=== PATIENT | female | born 1960 | race Caucasian/White ===

== ENCOUNTER 2021-12-14 07:43 | Inpatient (IN) | payer BC, SELFPAY ==
[2021-12-14] VITALS (18 sets, daily range): BP systolic 153–223; BP diastolic 66–144; PULSE 67–100; RESP 14–18; TEMP 36.2–36.8; O2SAT 93–99; BMI 29.2; BMI 29.0
--- NOTE | 2021-12-14 07:48 | NURSING ---
745 STROKE ALERT CALLED
--- NOTE | 2021-12-14 07:54 | RAD_ITS ---
STUDY: X-RAY CHEST REASON FOR EXAM: Female, 60 years old. Neuro deficit, acute, stroke suspected TECHNIQUE: Single AP portable view of the chest. COMPARISON: None. FINDINGS: EKG electrodes are seen. The lungs are clear and expanded. There is no demonstrated pleural abnormality. Normal size heart. Normal mediastinum and roshan. Normal visualized pulmonary arteries. Normal visualized aortic arch and descending thoracic aorta. There are degenerative changes of the visualized thoracic spine. Normal visualized ribs, clavicles, and shoulders. There is no demonstrated abnormality of the visualized soft tissue structures of the upper abdomen. RAD/Chest 1 View IMPRESSION: No acute abnormality is seen. Electronically Signed: Gilbert Luis MD at 8:41 EDT ,
--- NOTE | 2021-12-14 07:54 | EKG12_ITS ---
Test Reason : STOKE Blood Pressure : / mmHG Vent. Rate : 079 BPM Atrial Rate : 079 BPM P-R Int : 132 ms QRS Dur : 086 ms QT Int : 380 ms P-R-T Axes : 053 054 054 degrees QTc Int : 435 ms Normal sinus rhythm Normal ECG Confirmed by SHAHNAZ EDMONDS, JESUS ([id number]), video effects editor ANDREI JANE ([id number]) on 12/18/2021 8:52:22 AM Referred By: PL Confirmed By:JESUS CHRISTIE MD
--- NOTE | 2021-12-14 07:54 | CT_ITS ---
STUDY: CTA HEAD AND NECK WITH CONTRAST REASON FOR EXAM: Female, 60 years old. Neuro deficit, acute, stroke suspected RADIATION DOSAGE (If Supplied By Facility): CTDIvol = ( 27.33 ) mGy, DLP = ( 952.61 ) mGycm TECHNIQUE: CT angiography was performed with a multi-detector CT scanner. Data acquisition was obtained from the skull base through the vertex following intravenous administration of IV 100mL Isovue-370. MIP images were reconstructed from the axial data set. Post-processing of the angiographic images was performed, with multiplanar reformation and 3D reconstruction. Individualized dose optimization techniques were used for this CT. COMPARISON: No relevant priors. FINDINGS: Normal bilateral petrous carotid arteries. Normal right cavernous carotid artery with a normal supraclinoid bifurcation. Normal left cavernous carotid artery with a normal supraclinoid bifurcation. Normal right A1 segments of the anterior cerebral artery. Normal left A1 segments of the anterior cerebral artery. Normal intact anterior communicating artery (ACOM). Normal bilateral A2 segments of the anterior cerebral arteries. Normal right M1 and M2 segments of the middle cerebral arteries, with a normal M1 bifurcation. Normal left M1 and M2 segments of the middle cerebral arteries, with a normal M1 bifurcation. Normal right posterior communicating artery (PCOM). Normal left posterior communicating artery (PCOM). Normal bilateral vertebral arteries. Normal basilar artery with a normal basilar bifurcation. The visualized bilateral superior cerebellar (SCA) arteries are normal. Normal bilateral P1, P2 and visualized P3 segments of the posterior cerebral arteries. There is no demonstrated aneurysm of the [place] of [place]. There is no demonstrated abnormality of the visualized brain. AORTIC ARCH: Normal visualized aortic arch. Normal origins of the brachiocephalic, left common carotid, and left subclavian arteries. RIGHT CAROTID ARTERIES: Normal right common carotid artery (CCA). Normal right common carotid bulb. Normal origin of the right internal carotid (ICA) artery without a hemodynamically significant stenosis. Normal visualized cervical portion of the right internal carotid artery. Normal origin of the right external carotid artery (ECA). LEFT CAROTID ARTERIES: Normal left common carotid artery (CCA). Normal left common carotid bulb. Normal origin of the left internal carotid (ICA) artery without a hemodynamically significant stenosis. Normal visualized cervical portion of the left internal carotid artery. Normal origin of the left external carotid artery (ECA). VERTEBRAL ARTERIES: Normal bilateral vertebral arteries. CT/STROKE CTA Head AND Neck W/Con IMPRESSION: Normal CTA Head and neck with contrast. N.B. : The above Results were Read Back by Gilbert Luis MD to FABIENNE SOTOMAYOR and understanding confirmed on 12/14/2021 08:15:54 (ET). Electronically Signed: Gilbert Luis MD at 8:16 EDT ,
--- NOTE | 2021-12-14 07:54 | CT_ITS ---
STUDY: CT HEAD STROKE PROTOCOL W/O CONTRAST INJECTION REASON FOR EXAM: Female, 60 years old. Neuro deficit, acute, stroke suspected RADIATION DOSAGE (If Supplied By Facility): CTDIvol = ( 47.6 ) mGy, DLP = ( 37.39 ) mGycm TECHNIQUE: Transaxial CT imaging of the brain was performed without administration of intravenous contrast material. Individualized dose optimization techniques were used for this CT. COMPARISON: No relevant priors. FINDINGS: Normal soft tissue structures. Normal calvarium. Normal size ventricles and extra-axial spaces for the patient''s age. Normal white matter tracts of the cerebral hemispheres. Normal basal ganglia and thalami. Normal brainstem. Normal cerebellum. There is no intracranial hemorrhage. There are no findings of an acute ischemic infarction. Normal visualized paranasal sinuses. ASPECT score: 10 CT/STROKE Brain/Head without Cont IMPRESSION: Normal unenhanced CT scan of the brain. N.B. : The above Results were Read Back by Gilbert Luis MD to FABIENNE SOTOMAYOR and understanding confirmed on 12/14/2021 08:07:21 (ET). Electronically Signed: Gilbert Luis MD at 8:08 EDT ,
--- NOTE | 2021-12-14 07:54 | ED.VIS.STROK ---
HPI History of Present Illness Chief Complaint: Neuro S/Sx Informant: patient and family Narrative Narrative: Story from patient and daughter. Patient presents with wake-up stroke symptoms. She just did not feel right this morning but cannot specify what that is. She is on prednisone starting since Friday for lower back spasms. They are getting better. She started 40 mg a day and has been tapering down. She texted her daughter to pick her up at work which is not normal. She had driven into work this morning. The daughter noticed left facial droop. She also got several texts from her while she was driving in to [place] pickup her mother. Some of the text did not make a lot of sense but others did. But her speech has been clear the whole time. No thought process abnormality. There is no reported trauma. No headache. Patient has no chronic medical conditions, endometrial cancer 10 years ago with surgery and radiation but no chemo and no recurrence. No routine medications but she is on prednisone currently Allergy to sulfa Surgeries prior hysterectomy [facility] Medical History Former smoker History of endometrial cancer Migraines Home Medications lidocaine 4 % topical patch (Lidocaine Pain Relief) 1 patch topical DAILY PRN Pain 12/14/21 [History Last Taken Unknown] prednisone 10 mg tablet 10 mg PO DAILY 12/14/21 [History Last Taken Unknown] Allergy/AdvReac Type Severity Reaction Status Date / Time Sulfa (Sulfonamide Allergy Anaphylaxis Verified 12/14/21 07:47 Antibiotics) Surgical History Hx of hysterectomy Social History (Updated 12/14/21 @ 11:[address] Ryley Lima DO) Smoking Status: Former smoker alcohol intake: never substance use type: does not use ROS ROS ED Constitutional Constitutional ED: Denies chills or fever(s) Eyes Eyes: Denies diplopia ENT ENT ED: Denies sore throat Cardiovascular Cardiovascular: Denies chest pain or palpitations Respiratory/Chest Respiratory/Chest: Denies cough or dyspnea Gastrointestinal Gastrointestinal: Denies nausea or vomiting Genitourinary Genitourinary ED: Denies dysuria Musculoskeletal Musculoskeletal: Denies neck pain Integumentary Denies rash Neurologic Neurologic: Reports paresthesias and weakness; Denies headache(s) Endocrine Endocrinology: Denies polydipsia or polyuria Hematologic/Lymphatic Hematologic/Lymphatic: Reports other Details: No anticoagulation. ; Denies easy bleeding or easy bruising Allergic/Immunologic Allergic/Immunologic ED: Denies urticaria EXAM Physical Exam Const Vital Signs: 12/14/21 07:45 12/14/21 08:06 12/14/21 07:54 Temperature 97.6 F L Temperature Source Temporal Pulse Rate 89 77 91 Respiratory Rate 16 16 16 Blood Pressure 219/144 H 203/108 H 203/109 H Blood Pressure Mean 169 139 140 Pulse Ox 98 98 99 Oxygen Delivery Method Room Air Room Air Room Air 12/14/21 07:54 12/14/21 08:24 12/14/21 08:30 Temperature Temperature Source Pulse Rate 78 78 Respiratory Rate 15 15 Blood Pressure 211/103 H 211/103 H Blood Pressure Mean 139 139 Pulse Ox 97 97 Oxygen Delivery Method Room Air Room Air Room Air 12/14/21 09:00 Temperature Temperature Source Pulse Rate 67 Respiratory Rate 14 Blood Pressure 223/109 H Blood Pressure Mean 147 Pulse Ox 98 Oxygen Delivery Method Room Air Positive well nourished and well developed General Appearance ED: well developed and NAD HEENT Reports moist mucous membranes Eyes PERRL and EOMs intact bilaterally Neck no JVD Chest Wall inspection of chest normal Resp normal respiratory effort Cardio no murmurs GI normal to inspection, nondistended, normoactive bowel sounds and soft to palpation Extremity normal to inspection Neuro oriented x3 Neuro Narrative: Patient has left-sided facial weakness that does not involve her forehead. Sensorium / Orientation: alert Psych mental status grossly normal Skin no wounds STROKE Vital Signs/Narrative: Vital Signs Temp Pulse Resp BP Pulse Ox O2 Del Method 12/14/21 07:45 97.6 F L 89 16 219/144 H 98 Room Air NIHSS Initial: 1a Level of Consciousness: 0 1b LOC Questions (Score 2 if aphasic/stupor): 0 1c LOC Commands (Only score 1st attempt): 0 2 Best Gaze (If aphasic, use reflexive mvmts.): 0 3 Visual: 0 4 Facial Palsy: 1 5 Motor Arm Right (UN = amputation/fusion): 0 5 Motor Arm Left: 0 6 Motor Leg Right: 0 6 Motor Leg Left: 0 7 Limb ataxia (Only + if out of proportion): 0 8 Sensory (Aphasia/stupor=0 or 1, coma=2): 1 9 Best Language: 0 11 Extinction and Inattention (only scored if +): 0 Total Score: 2 MDM MDM MDM Narrative Medical decision making narrative: Patient CT is not showing acute changes at this time. CTA shows no acute process. Hemoglobin and white count are minimally high which is nonspecific. Coags are normal. Electrolytes show mild increased BUN to creatinine ratio but no other acute process. Chest x-ray showed no acute process. Patient had teleneurology evaluation. They recommended no tPA but positive admission for further work-up. I discussed case with hospitalist. I rechecked the patient before the end of her visit. The slight sensory change that she had in her left leg was now gone but the left facial droop that was subtle is unchanged. Lab Data Attestation: I reviewed the patient's lab results. Labs: Laboratory Results - last 24 hr 12/14/21 12/14/21 12/14/21 07:47 07:47 07:47 WBC 12.7 H RBC 5.19 Hgb 15.7 H Hct 46.8 MCV 90.2 MCH 30.3 MCHC 33.5 RDW Std Deviation 39.7 RDW Coeff of Kip 12.1 Plt Count 341 MPV 10.2 Immature Gran % (Auto) 0.400 Neut % (Auto) 66.8 Lymph % (Auto) 23.4 [place] % (Auto) 8.7 Eos % (Auto) 0.5 Baso % (Auto) 0.2 Absolute Neuts (auto) 8.5 H Absolute Lymphs (auto) 2.97 Nucleated RBC % 0 PT 12.0 INR 0.9 APTT 24.1 Sodium 141 Potassium 3.5 Chloride 104 Carbon Dioxide 34.0 H Anion Gap 3 L BUN 21 H Creatinine 0.81 Estim Creat Clear Calc 61.86 Est GFR (MDRD) Af Amer 92 Est GFR (MDRD) Non-Af 76 BUN/Creatinine Ratio 25.8 H Glucose 88 Calcium 9.6 Troponin I High Sens 4 POC Glucose 12/14/21 07:49 WBC RBC Hgb Hct MCV MCH MCHC RDW Std Deviation RDW Coeff of Kip Plt Count MPV Immature Gran % (Auto) Neut % (Auto) Lymph % (Auto) [place] % (Auto) Eos % (Auto) Baso % (Auto) Absolute Neuts (auto) Absolute Lymphs (auto) Nucleated RBC % PT INR APTT Sodium Potassium Chloride Carbon Dioxide Anion Gap BUN Creatinine Estim Creat Clear Calc Est GFR (MDRD) Af Amer Est GFR (MDRD) Non-Af BUN/Creatinine Ratio Glucose Calcium Troponin I High Sens POC Glucose 82 Radiography Diagnostic Testing: Clinical Impression(s) from Imaging Studies Brain CT 12/14/21 07:54 IMPRESSION: Normal unenhanced CT scan of the brain. N.B. : The above Results were Read Back by Gilbert Luis MD to FABIENNE SOTOMAYOR and understanding confirmed on 12/14/2021 08:07:21 (ET). Electronically Signed: Gilbert Luis MD at 8:08 EDT , ADDENDUM: 12/14/21 0815 IMPRESSION: Normal unenhanced CT scan of the brain. N.B. : The above Results were Read Back by Gilbert Luis MD to FABIENNE SOTOMAYOR and understanding confirmed on 12/14/2021 08:07:21 (ET). Electronically Signed: Gilbert Luis MD at 8:08 EDT , Chest X-Ray 12/14/21 07:54 IMPRESSION: No acute abnormality is seen. Electronically Signed: Gilbert Luis MD at 8:41 EDT , Head/Neck CTA 12/14/21 07:54 IMPRESSION: Normal CTA Head and neck with contrast. N.B. : The above Results were Read Back by Gilbert Luis MD to FABIENNE SOTOMAYOR and understanding confirmed on 12/14/2021 08:15:54 (ET). Electronically Signed: Gilbert Luis MD at 8:16 EDT , ADDENDUM: 12/14/21822 IMPRESSION: Normal CTA Head and neck with contrast. N.B. : The above Results were Read Back by Gilebrt Luis MD to FABIENNE SOTOMAYOR and understanding confirmed on 12/14/2021 08:15:54 (ET). Electronically Signed: Gilbert Luis MD at 8:16 EDT , Discharge Plan Dx/Rx/DC Orders Clinical Impression: CVA (cerebral vascular accident) Disposition Disposition: Acute Care Hospital [facility]
[2021-12-14 08:01] LABS: Absolute Lymphocyte Count 2.97 X10^3/uL (0.83-4.51); Absolute Neutrophil Count 8.5 X10^3/uL (2.0-7.7); Basophil# 0.03 X10^3/uL; Basophil% 0.2 % (0-1); Eosinophil# 0.06 X10^3/uL; Eosinophils% 0.5 % (0-5); Hematocrit 46.8 % (37-47); Hemoglobin 15.7 g/dL (12.0-15.0); Lymphocyte # 2.97 X10^3/ul (0.83-4.51); Lymphocyte % 23.4 % (19-41); Mean Corp Hgb Conc 33.5 g/dL (32-36); Mean Corpuscular Hgb 30.3 pg (27.0-32.0); Mean Corpuscular Volume 90.2 fL (81-99); Mean Platelet Vol. 10.2 fl (6.2-12.0); Monocyte% 8.7 % (0-10); NRBC Flagged by Analyzer 0 % (0-5); Neutrophil # 8.47 X10^3/uL (2.7-7.7); Neutrophil % 66.8 % (47-70); Platelet Count 341 K/mm3 (150-450); RBC Distribution Width CV 12.1 % (11.6-14.6); RBC Distribution Width SD 39.7 fl (35.1-43.9); Red Blood Count 5.19 M/mm3 (4.2-5.4); White Blood Count 12.7 K/mm3 (4.4-11.0)
[2021-12-14 08:10] LABS: Bedside Glucose 82 mg/dL (74-106)
[2021-12-14 08:11] LABS: International Normalized Ratio 0.9
[2021-12-14 08:12] LABS: Partial Thromboplast Time 24.1 Seconds (24.1-36.2)
[2021-12-14 08:19] LABS: Anion Gap 3 (5-15); BUN 21 mg/dL (7-18); BUN/Creat Ratio 25.8 RATIO (10-20); Calcium,Total 9.6 mg/dL (8.5-10.1); Chloride 104 mmol/L (98-107); Creatinine, Serum 0.81 mg/dL (0.55-1.02); EST Glomerular Filtration Rate 76 mL/min (>60); Est Glom Filt Rate - Afr Amer 92 mL/min (>60); Estimated Creatinine Clearance 61.86 ml/min; Glucose 88 mg/dL (74-106); Potassium 3.5 mmol/L (3.5-5.1); Sodium Level 141 mmol/L (136-145); Troponin-I HS 4 pg/mL (3.0-54.0)
--- NOTE | 2021-12-14 08:22 | ED.RN ---
[id number] THIS RN ON THE PHONE WITH [facility] CALLING STROKE TEAM INFORMATION
[2021-12-14] MEDS: Labetalol (Prefilled) 20 MG/4 ML IV (09:12)
--- NOTE | 2021-12-14 09:29 | NURSING ---
DR GERARDO SOTOMAYOR
--- NOTE | 2021-12-14 10:28 | MRI_ITS ---
We are attempting to reach an attending provider to discuss findings. An addendum with communication details will be sent when the communication is complete. EXAM: MR HEAD WITHOUT INTRAVENOUS CONTRAST CLINICAL INDICATION: CVA, L WEAKNESS, L FACIAL DROOP TECHNIQUE: Multiplanar and multisequence MR images of the brain were obtained without intravenous contrast. This report was created using [employer] report generation technology. COMPARISON: CT brain 12/14/2021 FINDINGS: BRAIN AND EXTRA-AXIAL SPACES: 3.2 cm area of restricted diffusion involves the right putamen consistent with acute infarction. No evidence of hemorrhage. Increased T2 signal intensity within the cerebral white matter suggestive of chronic microvascular change. No intracranial mass or mass effect. Posterior fossa structures are unremarkable. Ventricles are appropriate for age. No hydrocephalus. Basal cisterns are patent. SELLA: Unremarkable. Normal sella turcica, pituitary gland, infundibular stalk, optic chiasm and hypothalamus. AUDITORY SYSTEM: Unremarkable. The internal auditory canals are patent. BONES/JOINTS: Unremarkable. No discrete lytic or blastic abnormalities. SINUSES: Unremarkable as visualized. Clear. MASTOID AIR CELLS: Unremarkable as visualized. Clear. ORBITS: Unremarkable as visualized. Both globes, extraocular muscles, optic nerves and retrobulbar fat appear unremarkable. VASCULATURE: Unremarkable as visualized. Normal flow voids in the major intracranial circulation. MRI/Brain without Contrast IMPRESSION: 1. Acute infarction of the right putamen. 2. Chronic microvascular changes. Electronically Signed: Navjot Cali MD at 13:21 EDT ,
--- NOTE | 2021-12-14 10:28 | ECHOD_ITS ---
Reason For Study: TIA/CVA Procedure This was a 2D Doppler, Color Flow transthoracic echocardiogram. Exam performed portable in patient room. Left Ventricle Normal left ventricle. The estimated ejection fraction is 55-60 %. Right Ventricle Normal right ventricle. Normal systolic function. Atria The left atrium is mildly enlarged. Normal right atrium. Mitral Valve There is mild mitral annular calcification. Mild (1+) mitral valve insufficiency. Tricuspid Valve Normal tricuspid valve. Mild tricuspid valve insufficiency. Aortic Valve Normal aortic valve. Pulmonic Valve The pulmonic valve is not well visualized. Great Vessels Normal aortic root. Pericardium/Pleural No pericardial effusion. MMode/2D Measurements & Calculations LVIDd: 3.2 cm IVSd: 1.4 cm Ao root diam: 2.9 cm LVIDs: 2.4 cm LVPWd: 1.2 cm RVDd: 2.5 cm FS: 24.2 % LAV(MOD-bp): 49.4 ml LVAd ap4: 22.6 cm2 SV(MOD-sp4): 35.3 ml LAV(MOD-bp) Indexed: 27.8 ml/m2 LVLd ap4: 6.7 cm LAV(MOD-sp2): 38.4 ml EDV(MOD-sp4): 61.3 ml LAV(MOD-sp4): 57.3 ml EDV(sp4-el): 64.6 ml LVAs ap4: 13.5 cm2 LVLs ap4: 5.8 cm ESV(MOD-sp4): 25.9 ml ESV(sp4-el): 26.6 ml EF(MOD-sp4): 57.7 % EF(sp4-el): 58.9 % SV(sp4-el): 38.0 ml LA A4 area: 19.4 cm2 LA dimension(2D): 3.6 cm RA A4 area: 10.1 cm2 Doppler Measurements & Calculations MV E max shane: 109.5 cm/sec Ao V2 max: 116.3 cm/sec LV V1 max: 106.7 cm/sec MV A max shane: 103.0 cm/sec Ao max P.4 mmHg LV V1 max P.6 mmHg MV E/A: 1.1 MR max shane: 507.3 cm/sec PA V2 max: 76.6 cm/sec TR max shane: 285.9 cm/sec MR max P.9 mmHg TR max P.7 mmHg ECHO/Echo Complete Interpretation Summary The estimated ejection fraction is 55-60 %. Normal LV systolic function No prior study to compare Ordering Physician: Ryley Lima Performed By: Kinga Bauman RCS
[2021-12-14 10:32] LABS: Troponin-I HS 4 pg/mL (3.0-54.0)
[2021-12-14] MEDS: predniSONE 10 MG Tablet PO (11:16)
[2021-12-14] MEDS: Enoxaparin 40 MG/0.4 ML Syringe SC (11:16)
--- NOTE | 2021-12-14 11:40 | HP.PCM.HOS_ITS ---
HPI - General General Date of Admission: 12/14/21 Date of Service: 12/14/21 Chief Complaint: left facial droop HPI Narrative CLAIR HOLLOWAY, is a 60 F who presents with left facial droop. Patient woke up not feeling well and was having difficulty with her left lower extremity where he tripped over the bottom of the shower. Patient also noted left facial droop. Patient type to text to her daughter that was initially coherent and understand able about picking her up and then she had subsequent text that was just what appeared to be much random letters. Patient denies any expressive nor receptive aphasia. Patient presented here and was noted to have left facial droop. Patient had a head CT CTA of head neck that was unremarkable. Seen by teleneurology who recommended inpatient work-up for stroke with MRI and echocardiogram. [facility] Medical History Former smoker History of endometrial cancer Migraines Home Medications lidocaine 4 % topical patch (Lidocaine Pain Relief) 1 patch topical DAILY PRN Pain 12/14/21 [History Last Taken Unknown] prednisone 10 mg tablet 10 mg PO DAILY 12/14/21 [History Last Taken Unknown] Allergy/AdvReac Type Severity Reaction Status Date / Time Sulfa (Sulfonamide Allergy Anaphylaxis Verified 12/14/21 07:47 Antibiotics) Surgical History Hx of hysterectomy Social History (Updated 12/14/21 @ 11:[address] Ryley Lima DO) Smoking Status: Former smoker alcohol intake: never substance use type: does not use ROS ROS Narrative All review of systems were negative except as mentioned above in the history of present illness and the other review of systems. Vital Signs Vital Signs Vital Signs: 12/14/21 07:45 12/14/21 08:06 12/14/21 07:54 Temperature 36.4 C L Temperature Source Temporal Pulse Rate 89 77 91 Respiratory Rate 16 16 16 Blood Pressure 219/144 H 203/108 H 203/109 H Blood Pressure Mean 169 139 140 Blood Pressure Source Blood Pressure Position Blood Pressure Location Pulse Ox 98 98 99 Oxygen Delivery Method Room Air Room Air Room Air 12/14/21 07:54 12/14/21 08:24 12/14/21 08:30 Temperature Temperature Source Pulse Rate 78 78 Respiratory Rate 15 15 Blood Pressure 211/103 H 211/103 H Blood Pressure Mean 139 139 Blood Pressure Source Blood Pressure Position Blood Pressure Location Pulse Ox 97 97 Oxygen Delivery Method Room Air Room Air Room Air 12/14/21 09:00 12/14/21 09:30 12/14/21 09:39 Temperature 36.6 C Temperature Source Temporal Pulse Rate 67 80 80 Respiratory Rate 14 18 18 Blood Pressure 223/109 H 218/105 H 218/105 H Blood Pressure Mean 147 142 Blood Pressure Source Blood Pressure Position Blood Pressure Location Pulse Ox 98 98 98 Oxygen Delivery Method Room Air Room Air Room Air 12/14/21 10:00 12/14/21 11:00 Temperature 36.6 C Temperature Source Oral Pulse Rate 78 100 Respiratory Rate 16 18 Blood Pressure 196/106 H 218/103 H Blood Pressure Mean 136 141 Blood Pressure Source Monitor Blood Pressure Position Semi-Fowlers Blood Pressure Location Left Arm Pulse Ox 97 97 Oxygen Delivery Method Room Air Room Air Weight Weight: 74.298 kg Body Mass Index (BMI) 29.0 Physical Exam Const alert, no apparent distress and average body habitus HEENT normocephalic and head/scalp atraumatic HEENT Narrative: Left facial droop Eyes EOMs intact bilaterally Eyes Narrative: No icterus Neck no lymphadenopathy Resp normal respiratory effort, no retractions, no use of accessory muscles and clear to auscultation bilaterally Cardio regular rate, regular rhythm, S1 normal heart sound and S2 normal heart sound GI normal to inspection, nondistended, normoactive bowel sounds, soft to palpation, non-tender and non-distended Extremity normal to inspection, full ROM and no clubbing, cyanosis or edema Neuro oriented x3, CN's II-XII intact bilaterally and moves all extremities Neuro Narrative: Left facial droop. Ataxia left upper and left lower extremity. Does have some subtle weakness in the left upper and lower extremity Motor Exam: strength 5/5 throughout Psych affect normal Results Lab / Micro Data Attestation: I reviewed the patient's lab results. Result Diagrams: 12/14/21 07:47 12/14/21 07:47 Labs: Laboratory Results - last 24 hr 12/14/21 07:47: WBC 12.7 H, RBC 5.19, Hgb 15.7 H, Hct 46.8, MCV 90.2, MCH 30.3, MCHC 33.5, RDW Std Deviation 39.7, RDW Coeff of Kip 12.1, Plt Count 341, MPV 10.2, Immature Gran % (Auto) 0.400, Neut % (Auto) 66.8, Lymph % (Auto) 23.4, [place] % (Auto) 8.7, Eos % (Auto) 0.5, Baso % (Auto) 0.2, Absolute Neuts (auto) 8.5 H, Absolute Lymphs (auto) 2.97, Nucleated RBC % 0 12/14/21 07:47: PT 12.0, INR 0.9, APTT 24.1 12/14/21 07:47: Sodium 141, Potassium 3.5, Chloride 104, Carbon Dioxide 34.0 H, Anion Gap 3 L, BUN 21 H, Creatinine 0.81, Estim Creat Clear Calc 61.86, Est GFR (MDRD) Af Amer 92, Est GFR (MDRD) Non-Af 76, BUN/Creatinine Ratio 25.8 H, Glucose 88, Calcium 9.6, Troponin I High Sens 4 12/14/21 07:49: POC Glucose 82 12/14/21 10:10: Troponin I High Sens [address] 12/14/21 07:54 IMPRESSION: Normal unenhanced CT scan of the brain. N.B. : The above Results were Read Back by Gilbert Luis MD to FABIENNE SOTOMAYOR and understanding confirmed on 12/14/2021 08:07:21 (ET). Electronically Signed: Gilbert Luis MD at 8:08 EDT , ADDENDUM: 12/14/21 0815 IMPRESSION: Normal unenhanced CT scan of the brain. N.B. : The above Results were Read Back by Gilbert Luis MD to FABIENNE SOTOMAYOR and understanding confirmed on 12/14/2021 08:07:21 (ET). Electronically Signed: Gilbert Luis MD at 8:08 EDT , Chest X-Ray 12/14/21 07:54 IMPRESSION: No acute abnormality is seen. Electronically Signed: Gilbert Luis MD at 8:41 EDT , Head/Neck CTA 12/14/21 07:54 IMPRESSION: Normal CTA Head and neck with contrast. N.B. : The above Results were Read Back by Gilbert Luis MD to FABIENNE SOTOMAYOR and understanding confirmed on 12/14/2021 08:15:54 (ET). Electronically Signed: Gilbert Luis MD at 8:16 EDT , ADDENDUM: 12/14/21 0823 IMPRESSION: Normal CTA Head and neck with contrast. N.B. : The above Results were Read Back by Gilbert Luis MD to FABIENNE SOTOMAYOR and understanding confirmed on 12/14/2021 08:15:54 (ET). Electronically Signed: Gilbert Luis MD at 8:16 EDT , Assessment & Plan Assessment/Plan (1) CVA (cerebral vascular accident): QUALIFIERS: CVA mechanism: unspecified Qualified Code(s): I63.9 - Cerebral infarction, unspecified PLAN: Patient has signs consistent with right-sided stroke with her left-sided deficits. Plan * MRI of the brain * Echocardiogram * Aspirin * Statin * Check fasting lipid panel * PT OT evaluate and treat PLAN: Plan VTE prophylaxis with enoxaparin
[2021-12-14] MEDS: Acetaminophen 325 MG Tablet 650 MG PO ×2 (11:48→18:01)
[2021-12-14] MEDS: Aspirin 325 MG Tablet PO (13:09)
--- NOTE | 2021-12-14 13:20 | CASEMGMT ---
MARRY GLORIA Face to Face with patient for initial transition planning/care coordination assessment. RN CM introduced self and role at [facility]. Patient lying in bed, alert and oriented, daughter at bedside. Patient willing to participate in assessment and is able to answer all questions appropriately. Care providers, pharmacy, and demographics verified. Patient wishes to discharge home, will monitor progress with therapy for possible HHC vs outpatient therapy.. Patient states she has no further needs or concerns at this time. CM to follow for discharge planning needs that may arise. PCP: No PCP. Patient just recently moved to area 6 weeks ago. PCP list provided to patient Specialists: none Preferred Pharmacy: [facility] Insurance: [employer] Prescription Benefit: yes Living Will/HPOA: none LNOK: daughter, CHIP Living Arrangements: Patient lives with daughter and CHIP in a single story home with 2 steps to enter. Prior to current illness patient was independent at home. Transportation: self, daughter DME/HHC: Patient has access to raised toilet, shower chair, and grab bars at home. No previous HHC or SNF. Disposition Plan: Patient to discharge home with family support and follow-up plans in place. Will monitor for HHC vs Outpatient therapy at discharge. Lavinia LUCERO, RN, CM
--- NOTE | 2021-12-14 14:01 | TELEMED_ITS ---
[facility] Telemed has confirmed receipt of a request for visit. This document confirms receipt of the order initiating the consult. To find the results of the consultation, please view the patient's reports for the scanned Telemed Consult.
--- NOTE | 2021-12-14 15:40 | CASEMGMT ---
SW completed a PHQ 9 with patient as she had a Stroke. Patient scored a 4 which indicates minimal depression. Patient said she does not feel like she needs counseling. She scored a 4 mainly because she has been having troubles falling asleep. Patient said that is not new. Christine White [employer]
[2021-12-14] MEDS: Atorvastatin Calcium 80 MG Tablet PO (21:18)
[2021-12-15] VITALS (11 sets, daily range): BP systolic 143–188; BP diastolic 66–97; PULSE 57–84; RESP 16–18; TEMP 36.4–36.9; O2SAT 96–97; BMI 29.0
[2021-12-15 06:10] LABS: Cholesterol 217 mg/dL (200); High Density Lipoprotein 70 mg/dL; Triglycerides 187 mg/dL; Very Low Density Lipoprotein 37 mg/dL (5-40)
[2021-12-15] MEDS: predniSONE 10 MG Tablet PO (08:23)
[2021-12-15] MEDS: Aspirin 81 MG TAB.CHEW PO (08:23)
[2021-12-15] MEDS: Enoxaparin 40 MG/0.4 ML Syringe SC (08:23)
--- NOTE | 2021-12-15 08:40 | PN.HOSP_ITS ---
Subjective Subjective Still have scrambled texts, but is coherent other andrews. No new event. Objective Data Objective Data Vital Signs: Vital Signs Temp Pulse Resp BP Pulse Ox O2 Del Method 36.6 C 70 16 174/78 H 96 Room Air 12/15/21 08:17 12/15/21 08:17 12/15/21 08:17 12/15/21 08:17 12/15/21 08:17 12/15/21 08:17 Oxygen Delivery Method Room Air Weight: 74.298 kg Body Mass Index (BMI) 29.0 Intake & Output: Intake and Output for Last 24 Hours 12/13/21 12/14/21 12/15/21 23:59 23:59 23:59 Intake Total 630 / 630 500 / 500 Balance 630 / 630 500 / 500 Lab / Micro Data Result Diagrams: 12/14/21 07:47 12/14/21 07:47 Labs: Laboratory Results - last 24 hr 12/14/21 10:10: Troponin I High Sens 4 12/15/21 05:10: Triglycerides 187, Cholesterol 217 H, LDL Cholesterol 110, VLDL Cholesterol 37, HDL Cholesterol 70 Radiography Diagnostic Testing: Radiology Impression Chest X-Ray 12/14/21 07:54 IMPRESSION: No acute abnormality is seen. Electronically Signed: Gilbert Luis MD at 8:41 EDT , Brain MRI 12/14/21 10:28 IMPRESSION: 1. Acute infarction of the right putamen. 2. Chronic microvascular changes. Electronically Signed: Navjot Cali MD at 13:21 EDT , ADDENDUM: 12/14/21 1356 IMPRESSION: 1. Acute infarction of the right putamen. 2. Chronic microvascular changes. N.B. : The above Results were Read Back by Navjot Cali MD to Dr. Janie MD, and understanding confirmed on 12/14/2021 13:49:18 (ET). Electronically Signed: Navjot Cali MD at 13:21 EDT , Echocardiogram 12/14/21 10:28 Interpretation Summary The estimated ejection fraction is 55-60 %. Normal LV systolic function No prior study to compare Ordering Physician: Ryley Lima Performed By: Kinga Bauman RCS Physical Exam Const alert and no apparent distress HEENT head/scalp atraumatic Eyes Eyes Narrative: Impaired upper visual stephen Resp normal respiratory effort, no retractions, no use of accessory muscles and clear to auscultation bilaterally Cardio regular rate, regular rhythm, S1 normal heart sound and S2 normal heart sound GI normal to inspection, nondistended, normoactive bowel sounds, soft to palpation and non-tender Extremity normal to inspection Neuro oriented x3, CN's II-XII intact bilaterally and moves all extremities Neuro Narrative: Left facial droop. Finger-nose impaired on the left with some ataxia. Sensorium / Orientation: awake and alert Psych affect normal Assessment & Plan Assessment/Plan (1) CVA (cerebral vascular accident): QUALIFIERS: CVA mechanism: thrombosis PLAN: MRI shows right putamen infarct Echo with an EF 55-60% Patient has signs consistent with right-sided stroke with her left-sided deficits. Plan * Aspirin * Statin * Outpt front desk monitor for afib * PT OT evaluate and treat * Outpatient physical occupational and speech therapy. (2) HTN (hypertension): PLAN: BP elevated. Per neuro, allow permissive HTN (up to 220/120) for 48h after CVA (until 12/16), then can treat more agressively PLAN: Plan VTE prophylaxis with enoxaparin Disposition: Plan is for home on the . Case discussed with the patient's daughter at bedside. Discussed with her about the jumbled text may be an issue in regards to coordination particular with her left hand as patient is at two-handed [place]. Charges/Coding Visit Charges Inpatient E&M: 49292 Subs Hosp L3
--- NOTE | 2021-12-15 13:30 | CASEMGMT ---
RN CM in to discuss discharge planning with patient, daughter Jailene on phone. Patient and daughter agreeable to outpatient therapy for PT/OT/ST. Script received from hospitalist. Patient provided with script and information regarding [facility] to schedule appt and placed in patient's discharge folder. Patient and daughter had no further questions or concerns at this time.
[2021-12-15] MEDS: Atorvastatin Calcium 80 MG Tablet PO (21:30)
[2021-12-16 03:00] VITALS: BP 167/85; PULSE 60; PULSE 80; RESP 16; TEMP 36.4; O2SAT 97
[2021-12-16 03:31] VITALS: BMI 29.0
[2021-12-16 06:00] VITALS: BP 176/78; PULSE 99; RESP 16; TEMP 36.6; O2SAT 95
[2021-12-16 06:59] VITALS: PULSE 63
--- NOTE | 2021-12-16 08:13 | PN.HOSP_ITS ---
Subjective Subjective No new changes. Objective Data Objective Data Vital Signs: Vital Signs Temp Pulse Resp BP Pulse Ox O2 Del Method 36.6 C 63 16 176/78 H 95 Room Air 12/16/21 06:00 12/16/21 06:59 12/16/21 06:00 12/16/21 06:00 12/16/21 06:00 12/16/21 06:00 Oxygen Delivery Method Room Air Weight: 74.298 kg Body Mass Index (BMI) 29.0 Intake & Output: Intake and Output for Last 24 Hours 12/14/21 12/15/21 12/16/21 23:59 23:59 23:59 Intake Total 630 / 630 500 / 700 200 / 200 Balance 630 / 630 500 / 700 200 / 200 Lab / Micro Data Result Diagrams: 12/14/21 07:47 12/14/21 07:47 Physical Exam Const alert and no apparent distress HEENT HEENT Narrative: still with left facial droop. Neuro Neuro Narrative: ataxia on left UE greatly improved Assessment & Plan Assessment/Plan (1) CVA (cerebral vascular accident): QUALIFIERS: CVA mechanism: thrombosis Precerebral and cerebral artery: unspecified cerebral artery Qualified Code(s): I63.30 - Cerebral infarction due to thrombosis of unspecified cerebral artery PLAN: MRI shows right putamen infarct Echo with an EF 55-60% Patient has signs consistent with right-sided stroke with her left-sided deficits. Plan * Aspirin * Statin * Outpt senior billing consultant for afib * PT OT evaluate and treat * Outpatient physical occupational and speech therapy. (2) HTN (hypertension): QUALIFIERS: Hypertension type: primary hypertension Qualified Code(s): I10 - Essential (primary) hypertension PLAN: BP elevated. Per neuro, allow permissive HTN (up to 220/120) for 48h after CVA (until 12/16), then can treat more agressively start lisinopril 10mg/d PLAN: Plan VTE prophylaxis with enoxaparin Disposition: Plan is for home on the .
[2021-12-16 08:55] VITALS: BP 159/99; PULSE 70; RESP 16; TEMP 36.6; O2SAT 100
[2021-12-16] MEDS: Aspirin 81 MG TAB.CHEW PO (08:57)
[2021-12-16] MEDS: Enoxaparin 40 MG/0.4 ML Syringe SC (08:57)
[2021-12-16] MEDS: Lisinopril 10 MG Tablet PO (08:57)
[2021-12-16] MEDS: predniSONE 10 MG Tablet PO (08:57)
[2021-12-16 10:59] VITALS: PULSE 78
--- NOTE | 2021-12-16 11:29 | PCM.DC ---
Discharge Instructions Diet Discharge Diet: Low fat / Low cholesterol Dressing / Incision Call your doctor if you observe: Numbness or Tingling and - (increased weakness. ) Follow Up Care Please Follow Up With: Physical Therapy When: 1 week Test Results: Test results from this visit will be discussed in further detail at your follow-up appointment, if applicable. Discharge Plan Admission Admit Date/Time: 12/14/21 09:28 Primary Reason for Your Visit: stroke Attending Provider: Ryley Lima Primary Care Provider: Care Physician,Elina Primary Discharge Orders/Prescriptions Prescriptions: New atorvastatin 80 mg Tablet 80 mg PO QHS Qty: 30 0RF aspirin 81 mg Tablet,Chewable 81 mg PO BREAKFAST Qty: 0 0RF lisinopril 10 mg Tablet 10 mg PO DAILY Qty: 30 0RF Continued prednisone 10 mg Tablet 10 mg PO DAILY Rx Instructions: taper end 12/17 lidocaine [Lidocaine Pain Relief] 4 % Adhesive Patch,Medicated 1 patch TOPICAL DAILY PRN (Reason: Pain) Referrals / Follow Up: Jin Nguyen MD [NON-STAFF] - Within 3 Months (stroke follow up) Care Physician,No Primary [Primary Care Provider] - [facility] Doctor,Out of [NON-STAFF] - Within 2 Weeks Disposition Disposition (needs filled in before D/C Order can be placed): Home, Self Care
--- NOTE | 2021-12-16 11:34 | DS.PCM_ITS ---
Providers Date of Admission: 12/14/21 Primary Care Physician: No Primary Care Phys Reason For Visit: CVA Diagnosis Discharge Diagnosis (1) CVA (cerebral vascular accident): Status: Acute Code(s): I63.9 - Cerebral infarction, unspecified Qualifiers: CVA mechanism: thrombosis Precerebral and cerebral artery: unspecified cerebral artery Qualified Code(s): I63.30 - Cerebral infarction due to thrombosis of unspecified cerebral artery Plan: MRI shows right putamen infarct Echo with an EF 55-60% Patient has signs consistent with right-sided stroke with her left-sided defi cits. Plan * Aspirin * Statin * Outpt radiation monitor for afib * PT OT evaluate and treat * Outpatient physical occupational and speech therapy. (2) HTN (hypertension): Status: Chronic Code(s): I10 - Essential (primary) hypertension Qualifiers: Hypertension type: primary hypertension Qualified Code(s): I10 - Essential (primary) hypertension Plan: BP elevated. Per neuro, allow permissive HTN (up to 220/120) for 48h after CVA (until 12/16), then can treat more agressively start lisinopril 10mg/d Plan VTE prophylaxis with enoxaparin Disposition: Plan is for home on the . Medications at Discharge Home Medications lidocaine 4 % topical patch (Lidocaine Pain Relief) 1 patch topical DAILY PRN Pain 12/14/21 prednisone 10 mg tablet 10 mg PO DAILY 12/14/21 aspirin 81 mg chewable tablet 81 mg PO BREAKFAST #0 tabs 12/16/21 atorvastatin 80 mg tablet 80 mg PO QHS #30 tabs 12/16/21 lisinopril 10 mg tablet 10 mg PO DAILY #30 tabs 12/16/21 Hospital Course Operations None Procedures 2-D Echocardiogram Summary of Care Provided Minutes Spent on Discharge: 32 Weight / BMI Weight Weight: 74.298 kg Body Mass Index (BMI) 29.0 ABG / Lab / Microbiology Data Result Diagrams: 12/14/21 07:47 12/14/21 07:47 D/C Instructions Discharge Diet: Low fat / Low cholesterol Call your doctor if you observe: Numbness or Tingling and - (increased weakness. ) Please Follow Up With: Physical Therapy When: 1 week Meaningful Use Info Meaningful Use Diagnoses (Choose all that apply): Ischemic CVA CVA Therapy Assessed for PT,OT and/or ST?: Yes Ischemic Stroke Antithrombotic order at d/c?: Yes Dx of Atrial fib/flutter?: No Anticoagulant at discharge?: No Reason anticoagulant not ordered: Treatment not Indicated Statins at discharge?: Yes Primary Dx Acute Ischemic CVA?: Yes IV tPA ordered during stay?: No Reason IV t-PA not ordered: Treatment not Indicated Discharge Plan Admission Admit Date/Time: 12/14/21 09:28 Primary Reason for Your Visit: stroke Attending Provider: Ryley Lima Primary Care Provider: Care Physician,No Primary Discharge Orders/Prescriptions Prescriptions: New atorvastatin 80 mg Tablet 80 mg PO QHS Qty: 30 0RF aspirin 81 mg Tablet,Chewable 81 mg PO BREAKFAST Qty: 0 0RF lisinopril 10 mg Tablet 10 mg PO DAILY Qty: 30 0RF Continued prednisone 10 mg Tablet 10 mg PO DAILY Rx Instructions: taper end 12/17 lidocaine [Lidocaine Pain Relief] 4 % Adhesive Patch,Medicated 1 patch TOPICAL DAILY PRN (Reason: Pain) Referrals / Follow Up: Jin Nguyen MD [NON-STAFF] - Within 3 Months (stroke follow up) Care Physician,No Primary [Primary Care Provider] - [facility] Doctor,Out of [NON-STAFF] - Within 2 Weeks Disposition Disposition (needs filled in before D/C Order can be placed): Home, Self Care Charges/Coding Visit Charges Inpatient E&M: 09504 Disch Hosp
[2021-12-16 11:46] VITALS: BP 134/71; PULSE 65; RESP 16; TEMP 36.8; O2SAT 98
[2021-12-16 12:10] VITALS: BMI 29.0
== END 2021-12-16 12:10 | disposition home or self-care (01) | DRG 65 ==
LOC: ED 09:01 → PCU 10:03
PROVIDERS: Emergency Provider Emergency Medicine
DX: I63.9 Cerebral infarction, unspecified (principal); G81.94 Hemiplegia, unspecified affecting left nondominant side; I10 Essential (primary) hypertension; R29.702 NIHSS score 2; Z85.42 Personal history of malignant neoplasm of other parts of uterus; Z92.3 Personal history of irradiation; Z87.891 Personal history of nicotine dependence; R29.810 Facial weakness; R27.0 Ataxia, unspecified
CPT/HCPCS: 36415; 70450; 70496; 70498; 70551; 71045; 80048; 80061; 82962; 84484; 85025; 85610; 85730; 92523; 92526; 93005; 93271; 93306; 94762; 97110; 97112; 97116; 97162; 97165; 97535; 99285; Q9967; A4216

== ENCOUNTER 2022-02-05 09:30 | Outpatient (RCR) | payer BC, SELFPAY ==
--- NOTE | 2021-12-25 12:59 | HP.SP.EVAL ---
History - History Date of Eval: 12/25/21 Previous speech therapy: Yes Results: Pt received speech therapy for dysphagia at [facility]. Pt was on a normal diet and complete oral motor exercises. Pt's cognition was assessed to be WNL during her hospital stay. Other Relevant Medical History/Diagnoses/Surgery: Gloria is a 61 year old female who was seen at [facility] for a speech and language. Pt had a stroke last Friday and was treated at [facility] until Friday. Pt lives with daughter, Jailene, in [place], [place]. She works at [employer] at [employer] and drives herself to and from work. Pt reports increased fatigue since her stroke. She reports increased difficulty with texting and increased processing time. However, Pt reports she can still complete all tasks of daily living. Pt with a slight facial droop on Left side. Smoking Status: Former smoker Hx Smoking Cessation Date: 06/09/04 Hx Tobacco Use: No - Pain Is pain an issue with your current prescribed condition?: No Patient Allergies - Allergies Allergies Sulfa (Sulfonamide Antibiotics) Allergy (Verified 12/14/21 07:47) Anaphylaxis Objective Dysphagia - Administered by Administered by: Self - Thin Liquids Administred via: Cup Oral Transit: WNL Bolus clearance: fully cleared Gagging: No Cough: delayed - Pureed Administered via: Spoon Oral Preparation: WNL Oral Transit: WNL Bolus clearance: fully cleared Cough: none observed/unable to assess Patient Report: Pt reports that apple sauce goes down well, but regular foods cling to her throat. - Regular Oral Preparation: WNL Bolus clearance: some clearance/residue Gagging: No Cough: immediate Patient Report: Pt reports difficulty with bolus loss. Pt with a slight left side facial droop. Facial droop has improved since the hospital stay. Pt reports pocketing on left side. Pt reports it took 4 liquid washes to clear the bolus. At home, Pt said she occasionally coughs and more commonly feels like food goes down the wrong pipe. Comments: Pt with strong coughed after trials of cookie. Pt said it felt like the cookie was stuck and the cough cleared it. Subjective Oral Motor - Subjective Facial Drooping: Left - Comments Comments: Pt completed the following oral motor exercises during the evaluation: pucker/smile, pucker side to side, puffing cheeks with side to side mvt, lip press, gum sweep [place], and teeth sweep [place]. Pt completed all exercises with min to mod verbal and visual cues. Pt with difficulty with pucker side to side on her left side. Plan - Plan Plan: Will rx Pt for skilled outpatient tx to address deficits in oral phase dysphagia. Pt would benefit from training and education re: diet tolerance checks, pocketing, and swallowing exercises to aid in oral strengthening. Without skilled intervention, Pt is at risk for consuming a restrictive diet putting her at risk for aspiration pneumonia and atrophy of laryngeal musculature. - Recommendations MBS: No Treatment Warranted: Yes Treatment Warranted: Dysphagia - Progress Prognosis: Excellent - Frequency Frequency: Every Other Week Duration: 2 Months - Goal #1-5 Goal #1: Pt will complete oral motor exercises to aid in bolus manipulation, oral strengthening, and ROM with no cues during 3 sessions. Goal #2: Pt will utilize swallowing strategies re: small sips and bite, alt. sips and bites and tongue sweeps and tolerate least restrictive diet with no overt s/s of aspiration/penetration to aid in safe consumption of solid/liquids independently. Education - Patient has Indicated that the Following Identified Educational Needs: None The Patient has indicated that they have no educational or learning abilities that may effect their care.: Yes - Patient Instruction Patient Education: Diagnosis, Treatment Plan, Goals, Safety Precautions, Home Exercise Program Person Taught: Patient Teaching Method: Discussion, Handout Response to teaching: Verbalize understanding
--- NOTE | 2021-12-27 13:18 | HP.PTEVAL ---
Patient's Visit Information CLAIR HOLLOWAY is a 61 year old F referred to Physical Therapy by Dr. Ryley Lima DO with a diagnosis of CVA. Date of Evaluation: 12/27/21 Physical Therapist: Tommy Francis, PT, ATC - Visit Plan Frequency: 2-3x /Week Duration: 4-6 Weeks Plan: L LE strengthening, balance and proprio, core strengthening, gait training, stair negotiation, nustep, and HEP - Subjective CVA: 12/14/21. Pt reports she had a stroke in her sleep. Pt reports she woke up and had a very difficult time getting in and out of the shower that morning, and then couldn't remember how to put her clothes on. Pt reports she still managed to get dressed and drive to work. Pt reports that's when a coworker noticed her symptoms and notified family. Pt reports she was admitted to the hospital for 2 days, and was told to go to [facility] for some therapy. Pt reports she still has some L sided weakness. Her greatest complaint is feeling very tired. Pt reports she is still getting headaches and her eyes ache. Pt denies any tingling or numbness in her LE's, and notes she can feel her feet hitting the ground just fine. Pt reports she works at the [employer] at [employer]. Pt reports she is mostly I with IADL's. Pt notes she is not in pain at this time. Pt has 2 stairs into the house that she has to negotiate one step at a time. Pt reports she has to lift 50# boxes at work. - Objective Neuro: B LE sensation is WNL to light touch. B patellar reflex= 1/3. ROM: B LE's are WFL when compared bilaterally. MMT: R LE is grossly 5/5 throughout. L LE is grossly 4/5 throughout. Gait: Pt is able to ambulate 680' with CGA until needing a rest secondary to fatigue. FGA: 30- Mild balance deficit - Balance/Special Test Scores Functional Gait Assessment Score: 26 % Disability: 13.3400 Lower Extremity Functional Score: 40 - Goals Goal 1:: Increase L LE strength x 1 grade to aid with stair negotiation Goal Time Frame: 4-6 Weeks Goal 2:: Increase FGA score x 2-3 points to aid with preventing future falls. Goal Time Frame: 4-6 Weeks Goal 3:: Pt will be able to ambulate greater than 1000 feet to aid with community ambulation Goal Time Frame: 4-6 Weeks Goal 4:: I with HEP Goal Time Frame: 4-6 Weeks - Rehabilitation Potential Physical Therapy Diagnosis: Pt has L sided weakness, decreased balance, and decreased endurance for activity secondary to CVA Rehabilitation Potential: Good - Anticipated Interventions Patient/Client Instruction: Educate patient on: Condition, Plan of Care For the Purpose of:: To improve self management Therapeutic Exercise to Include: Strength training, Endurance training, Balance training, Gait and locomotor training, Dynamic Lumbar Stabilization For the Purpose of:: To improve muscle performance and motor function, To increase tolerance to activity/condition/position, To improve ability of physical actions for home/community/work/leisure Thank you for the opportunity to evaluate your patient. For Medicare and Medicare HMO plans, please review the plan of care and approve it. It will need to be FAXED BACK to us at [phone] for Medicare purposes. For Medicare only, by signing this I certify the plan of care. Please let me know if there are questions or concerns regarding this plan of care. Physician Signature: Date:
--- NOTE | 2021-12-28 10:30 | HP.OTEVAL_ITS ---
Patient's Visit Information CLAIR HOLLOWAY is a 61 year old F, referred to Occupational Therapy by Dr. Ryley Lima DO, with a diagnosis of CVA left side weakness. Date of Evaluation: 12/25/21 Occupational Therapist: lEizabeth Hall, ROSS/Miladys, CHT - Subjective This 61 year old female was seen for OT eval with dx of CVA. pt states on 12/14/21 she woke up and had difficulty with with getting dress and at work she was having difficulty- pt works at [employer] at the [employer] and has worked there since October. pt states she is living with her dtr and her family-. pt states home is one story with a basement with two entry steps- PLOF she was ind. - ADLs Comments: pt states her PLOF she is IND with all ADLs and working part time receptionist at [employer] - ROM ROM Comments: pt demo full ROM of bilateral UE - Strength Shoulder: right 13.5# peak force left 15.5# Elbow: right 13# peak force left 13# Quality Improvement Consultant: right 55# left 35# Lateral Pinch: right 14# left 8# Tripod Pinch: right 8# left 8# Tip-to-Tip Pinch: right 6# left 4# Strength Comments: pt demo with left side weaker than right - Nine Hole Peg Right: 22.7 sec. Left: 30.9 sec - Stroke Specific Quality of Life Total SS-QOL Score: 177 - Quick DASH-Disab of Arm,Shoulder& Hand Quick DASH Score: 40.0000 - Goals Goal:: PT will demo an increase in manager life insurance strength by 20# to increase independent with basic occupations of daily living to return pt to PLOF by D/C. Pt will demo an increase in lateral and tripod pinch by 2# to increase pts independent with opening baggies, containers at PLOF by D/C. pt will demo the ability to lift 35# from counter top level indicating a increase in strength and functional ability for IADLs by d.c Goal:: pt will demo a increase in left hand coordination to increase accuracy of communication with texting words correctly by 75% Goal:: pt will demo safe strength and mobility to return to work indicating a return to her PLOF by dc - Rehabilitation General Assessment: pt demo with a decrease in left manager life insurance/pinch and endurance to complete ADLs in safe manner- pt would benefit from skilled OT services 2-3x week for 4 weeks to return pt to a PLOF. Therapist ed. pt on ad. equ. to increase safety in home until pt increases her strength for safe performance of ADLS. pt demo understanding and agree to POC. Rehabilitation Potential: Good - Anticipated Interventions Strengthening, Joint Protection/Energy Conservation, Ergonomic Education, Fine Motor Coord/J Luis, Neuro Reeducation, ADL Training, Education re assistive Equipment, Education re Diagnosis, Home Program - Visit Plan Frequency: 1-2x /Week Duration: 4 Weeks TEXT: Thank you for the opportunity to evaluate your patient. For Medicare and Medicare HMO plans, please review the plan of care and approve it. It will need to be FAXED BACK to us at [phone] for Medicare purposes. Please let me know if there are questions or concerns regarding this plan of care. Physician Signature: Date:
--- NOTE | 2022-02-05 09:54 | HP.PTDCSUM ---
It has been my pleasure to treat CLAIR HOLLOWAY referred by Dr. Ryley Lima DO, with the diagnosis of CVA for a total of 8 visit(s). Discharge Date: Please see the following information for a summary of their discharge status. Subjective: Pt reports her balance and strength have greatly improved. % Improvement: 98 Objective/Function: L LE MMT: L LE is 5/5 throughout. Pt can negotiate stairs without difficulty. FGA: . Gait: Pt is able to ambulate greater than 1000' without difficulty. Pt is I with HEP. Rx goals achieved. Goal 1:: Increase L LE strength x 1 grade to aid with stair negotiation Goal Progress: Goal Met Goal 2:: Increase FGA score x 2-3 points to aid with preventing future falls. Goal Progress: Goal Met Goal 3:: Pt will be able to ambulate greater than 1000 feet to aid with community ambulation Goal Progress: Goal Met Goal 4:: I with HEP Goal Progress: Goal Met Plan: Discharge to HEP If there are questions or concerns regarding this patient's physical therapy, please feel free to call me at [phone]. Thank you for the referral of this patient. Sincerely, Tommy Francis, PT, ATC Balance/Gait/Functional tests - Balance/Special Test Scores Functional Gait Assessment Score: 28 % Disability: 6.6700 Lower Extremity Functional Score: 73
--- NOTE | 2022-02-05 10:00 | HP.OTDCSUM_ITS ---
It has been my pleasure to treat CLAIR HOLLOWAY under orders from Dr. Ryley Lima DO, for the diagnosis of CVA left side weakness for a total of 8 visit(s). Please see the following information for a summary of their discharge status. 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 left lateral pinch of 10#. tripod pinch of 4# this was decrease from initial eval- pt has made good gains with her function. 9 hole peg test left increased speed by 2 sec,. pt states she is still living with her drt hand is not cleaning/cooking or doing house work- pt is doing well and agrees to D/C with HEP. 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 Pt will demo an increase in lateral and tripod pinch by 2# to increase pts independent with opening baggies, containers at PLOF by D/C. pt will demo the ability to lift 35# from counter top level indicating a increase in strength and functional ability for IADLs by d.c Goal:: pt will demo a increase in left hand coordination to increase accuracy of communication with texting words correctly by 75% Goal:: pt will demo safe strength and mobility to return to work indicating a return to her PLOF by dc Plan: D/C Discharge Comments: pt was seen for 8 OT visits since eval- pt has made good progress and will cont. with a HEP- to continue to improve her strength and endurance. pt agrees with d/c If there are questions or concerns regarding this patient's occupational therapy, please fell free to call me at [phone]. Thank you for the referral of this patient. Sincerely, Elizabeth Hall, OTR/L, CHT
== END 2022-02-05 14:41 | disposition home or self-care (01) ==
LOC: OT 09:30
DX: I69.321 Dysphasia following cerebral infarction (principal)
CPT/HCPCS: 92526; 92610; 97110; 97161; 97164; 97167; 97530

== ENCOUNTER → 2024-11-11 | Outpatient (CLI) | payer BC, SELFPAY ==
[2024-11-11 13:10] LABS: Absolute Lymphocyte Count 1.17 X10^3/uL (0.83-4.51); Absolute Neutrophil Count 3.2 X10^3/uL (2.0-7.7); Basophil# 0.04 X10^3/uL; Basophil% 0.8 % (0-1); Eosinophil# 0.15 X10^3/uL; Hematocrit 42.2 % (37-47); Hemoglobin 14.4 g/dL (12.0-15.0); Lymphocyte # 1.17 X10^3/ul (0.83-4.51); Lymphocyte % 23.3 % (19-41); Mean Corp Hgb Conc 34.1 g/dL (32-36); Mean Corpuscular Hgb 29.9 pg (27.0-32.0); Mean Corpuscular Volume 87.6 fL (81-99); Mean Platelet Vol. 9.7 fl (6.2-12.0); Monocyte# 0.41 X10^3/uL; Monocyte% 8.2 % (0-10); NRBC Flagged by Analyzer 0 % (0-5); Neutrophil # 3.24 X10^3/uL (2.7-7.7); Neutrophil % 64.5 % (47-70); Platelet Count 341 K/mm3 (150-450); RBC Distribution Width CV 12.6 % (11.6-14.6); Red Blood Count 4.82 M/mm3 (4.2-5.4)
[2024-11-11 13:19] LABS: Microalbumin,Random Urine 25.6 mg/L (NO RANGE EST.)
[2024-11-11 13:22] LABS: Hemoglobin A1c 5.4 % (<=5.6)
[2024-11-11 13:34] LABS: ALB/GLOB Ratio 1.7 RATIO (0.9-2.4); AST(SGOT) 18 U/L (<=31); Alanine Aminotransfer ALT/SGPT 14 U/L (<=34); Albumin, Serum 4.4 g/dL (3.4-4.8); Alkaline Phosphatase 62 U/L (35-104); Anion Gap 11 (5-15); BUN 12 mg/dL (4-19); BUN/Creat Ratio 16.7 RATIO (10-20); Calcium,Total 9.6 mg/dL (7.6-11.0); Carbon Dioxide 25.9 mmol/L (21.0-32.0); Chloride 103 mmol/L (98-108); Cholesterol 229 mg/dL (<=200); Creatinine, Serum 0.73 mg/dL (0.70-1.20); EST Glomerular Filtration Rate 93 (>60); Globulin 2.5 g/dL (2.2-4.2); Glucose 100 mg/dL (70-99); High Density Lipoprotein 68 mg/dL; Low Density Lipoprotein Calc. 135 mg/dL; Potassium 3.7 mmol/L (3.3-5.1); Protein, Total 6.9 g/dL (5.9-8.4); Sodium Level 140 mmol/L (133-145); Total Bilirubin 0.67 mg/dL (0.00-1.30); Triglycerides 130 mg/dL; Very Low Density Lipoprotein 26 mg/dL (5-40); cholesterol:hdl ratio screen 3.36
== END | disposition home or self-care (01) ==
LOC: VSLAB 11:04
PROVIDERS: PCP Family Medicine; Visit Provider Family Medicine
DX: I10 Essential (primary) hypertension (principal); E78.2 Mixed hyperlipidemia; R73.09 Other abnormal glucose
CPT/HCPCS: 36415; 80053; 80061; 82043; 83036; 85025